=== PATIENT | female | born 2005 | race American Indian/Alaskan Native ===

== ENCOUNTER → 2025-01-07 | Emergency (ER) | payer BC ==
[~2025-01-07] VITALS: Ht 167.6 cm; Wt 49.9 kg
[~2025-01-07] MED LIST: FAMOTIDINE/PF 20 MG/2 ML VIAL IV STA; FAMOTIDINE/PF 20 MG/2 ML VIAL ONE; KETOROLAC TROMETHAMINE 30 MG VIAL IV ONE; KETOROLAC TROMETHAMINE 30 MG VIAL ONE; ONDANSETRON HCL 2 MG/ML VIAL IV STA; ONDANSETRON HCL 2 MG/ML VIAL ONE; PROMETHAZINE HCL 50 MG/ML AMPUL IM ONE; RINGERS SOLUTION,LACTATED 1,000 ML IV SCH
[2025-01-07 18:36] VITALS: BP 116/72; O2SAT 100
[2025-01-07 20:16] LABS: BASO % 0.4 % (0.1-1.2); EOS # 0.00 (0.04-0.54); EOS % 0.0 % (0.7-7.0); LYMPH # 1.53 (1.18-3.74); LYMPH % 12.3 % (19.3-53.1); MEAN PLATELET VOLUME 10.50 fl (9.4-12.4); MONO # 0.94 (0.24-0.82); MONO % 7.6 % (4.7-12.5); NEUT # 9.85 (1.56-6.13); NEUT % 79.5 % (34.0-71.1); RED CELL DISTRIBUTION WIDTH 12.7 % (11.6-14.4)
[2025-01-07 20:47] LABS: ALT/SGPT 22.0 U/L (12-78); AST/SGOT 20.0 U/L (15-37); BILIRUBIN TOTAL 0.98 mg/dL (0.3-1.2); BUN CREA RATIO 9.0 (7.0-25.0); CREATININE SERUM 0.96 mg/dL (0.55-1.02); GFR 74.87; GLOBULINA 3.0 G/DL (2.4-3.5); GLUCOSE FASTING 159.0 mg/dL (65-100); OSMOLALITY SERUM 283.0 MOSM/KG (275-295)
[2025-01-07 21:14] LABS: COVID-19 AG NEGATIVE (NEGATIVE)
== END | disposition left against medical advice (07) ==
LOC: EMR PED 18:24 → ER 18:24 → EMR PED 19:12
DX: R11.10 Vomiting, unspecified (principal); R10.9 Unspecified abdominal pain; Z20.822 Contact with and (suspected) exposure to COVID-19